=== PATIENT | male | born 1955 | race Caucasian/White ===

== ENCOUNTER 2021-01-31 17:41 | Inpatient (IN) | payer OTHER ==
[~2021-01-31] VITALS: Ht 180.3 cm; Wt 100.7 kg
--- NOTE | ~2021-01-31 | EMS ---
[facility] [address] [place] [address] EMS Patient Care Report Name: JOSE SMITH Room #: 357-P ADM IN M.R.#: [id number] Admission: 01/31/21 Attend Phys: Davey Jones, Discharge: Date of : 51 Report #: [id number] THIS REPORT FOR: //name// Report Transmitted: 02/05/2021 11:03 EMS Care Summary [place], [place]/[facility] Incident [id number] @ 01/31/2021 16:55 Incident Location [address] [place] [address] Patient JOSE SMITH Male, 65 Years 1955 Patient Address [address] [place], [place] [id number] Patient History Other,Hypertension (HTN), Patient Allergies No known allergies, Patient Medications Gabapentin, Chief Complaint CHEST PAIN Disposition Transported No Lights/Clarissa Dispatch Reason Unknown Problem/Person Down Transported To [facility] Narrative M41 DISPATCHED TO AN UNKNOWN PROBLEM. M41 AOS AND FOUND A MALE PT STANDING ON HIS PORCH. PT APPEARED IN DISTRESS THE PT WAS COOL PALE AND DIAPHORETIC. THE PT STATES THAT HE IS HAVING CHEST PAIN [facility] [address] [place] [address] EMS Patient Care Report Name: JOSE SMITH Room #: 357-P ADM IN M.R.#: [id number] Admission: 01/31/21 Attend Phys: Davey Jones, Discharge: Date of : 51 Report #: [id number] AND DIFFICULTY BREATHING. HE STATES THAT HE WOKE UP AND HE HAS HAD THIS PAIN FOR ABOUT TWO HOURS. HE STATES LAST NIGHT HE WAS CHASING A RACCOON OFF HIS PORCH WHEN HE FELL ABOUT 4 FEET ONTO HIS RIGHT SIDE. HE STATES HE DID NOT LOSE CONSCIOUSNESS AND THAT HE REMEMBERS THE ENTIRE EVENT. DENIES BLOOD THINNERS. DENIES HEAD AND NECK PAIN. THE PT STATES THAT HE BELIEVES HIS RIB PAIN MAY BE FROM THIS EVENT. HX, MEDS, ALLERGIES OBTAINED. PT RATES HIS PAIN 8/10 AND APPEARS VERY UNCOMFORTABLE. PT HELPED TO THE COT AND MOVED TO THE AMBULANCE. VITALS OBTAINED. BGA OBTAINED. IV ACCESS ATTEMTPED AND FAILED. 4 AND 12 LEAD OBTAINED. PT GIVEN 324MGA ASA. PT STATES HE WOULD LIKE TO GO TO [facility]. [facility] AND I ADVISED THE PT THAT [facility] IS CLOS[facility] AND OPEN TO [facility]. THE PT ALSO AGREED TO GO THERE ONCE HE FELT HOW UNCOMFORTABLE THE RIDE TO THE HOSPITAL WAS. M[address] [facility]. EN ROUTE PT REMAINED STABLE. REPORT GIVEN TO RITA GARCÍA. SIGNATURES OBTAINED. TRANSFER OF CARE TOOK PLACE. M41 IN SERVICE. [employer] Initial Vitals @17:15P: 90,CO: 2,SpO2: 93,PA Suspected: false @17:20P: 87,SpO2: 81, @17:22P: 82,SpO2: 95, @17:22P: 83, @17:22P: 88,CO: 0,SpO2: 94, @17:19P: 84,BP: 129/92,CO: 3,SpO2: 93, @17:12P: 78,R: 18,BP: 164/97,Pain: 8/10,GCS: 15,Glucose: 140,CO: 0,SpO2: 94,Revised Trauma: 12, @17:32P: 80,R: 18,BP: 136/89,Pain: 8/10,GCS: 15,CO: 1,SpO2: 95,Revised Trauma: 12, Assessments @17:04MENTAL:Event Oriented,Place Oriented,Person Oriented,Time Oriented,SKIN:Diaphoresis,Pale,Cold,HEENT:Head/Face: No Abnormalities,Neck/Airway: No Abnormalities,LUNG SOUNDS:General: No Abnormalities,ABDOMEN:General: No Abnormalities,PELVIS//GI:No Abnormalities,EXTREMITIES:Capillary Refill: Right Upper: < 2 Sec,Left Arm: No Abnormalities,Right Arm: No Abnormalities,Left Leg: No Abnormalities,Right Leg: No Abnormalities,PULSE:Radial: 2+ Normal,NEURO:No Abnormalities, [address] [address] EMS Patient Care Report Name: MARYDUCJOSE Room #: 357-P ADM IN M.R.#: [id number] Admission: 01/31/21 Attend Phys: Davey Jones, Discharge: Date of : 51 Report #: [id number] Impression Chest pain on breathing Procedures @17:04ALS AssessmentResponse: UnchangedSucceeded@17:22Saline Lock 0cc (20 ga) Site: Hand-LeftResponse: UnchangedFailed@17:1512-Lead ECGResponse: UnchangedSucceeded@17:22Aspirin - 324 Milligrams (mg) - OralResponse: Unchanged@17:123-Lead ECGResponse: UnchangedSucceeded@17:14Oxygen FlowRate: 2 Device: Nasal Cannula (NC) Response: UnchangedSucceeded Timeline 16:52,Call Received 16:52,Dispatch Notified 16:55,Dispatched 16:55,En Route 17:03,On Scene 17:04,At Patient 17:04,ALS Assessment,Response: UnchangedSucceeded, 17:12,3-Lead ECG,Response: UnchangedSucceeded, 17:12,BP: 164/97 M,PULSE: 78,RR: 18 R,SPO2: 94 Ox,ETCO2: ,B,PAIN: 8,GCS: 15, 17:14,Oxygen FlowRate: 2 Device: Nasal Cannula (NC) Response: UnchangedSucceeded, 17:15,12-Lead ECG,Response: UnchangedSucceeded, 17:15,BP: / M,PULSE: 90,RR: R,SPO2: 93 Ox,ETCO2: ,BG: ,PAIN: ,GCS: , 17:19,BP: 129/92 M,PULSE: 84,RR: R,SPO2: 93 Ox,ETCO2: ,BG: ,PAIN: ,GCS: , 17:20,BP: / M,PULSE: 87,RR: R,SPO2: 81 Ox,ETCO2: ,BG: ,PAIN: ,GCS: , 17:22,Saline Lock 0cc 20 ga Site: Hand-Left,Response: UnchangedFailed, 17:22,BP: / M,PULSE: 88,RR: R,SPO2: 94 Ox,ETCO2: ,BG: ,PAIN: ,GCS: , 17:22,BP: / M,PULSE: 83,RR: R,SPO2: Ox,ETCO2: ,BG: ,PAIN: ,GCS: , 17:22,Aspirin - 324 Milligrams (mg) - Oral,Response: Unchanged 17:22,BP: / M,PULSE: 82,RR: R,SPO2: 95 Ox,ETCO2: ,BG: ,PAIN: ,GCS: , 17:23,Depart Scene 17:32,BP: 136/89 M,PULSE: 80,RR: 18 R,SPO2: 95 Ox,ETCO2: ,BG: ,PAIN: 8,GCS: 15, 17:37,At Destination 17:52,Call Closed Disclaimer v1.1 Copyright 2020 [employer] This EMS Care Summary contains data elements from the applicable legal record (which may be displayed differently). It is designed to provide pertinent information for the following purposes: continuity of care, clinical quality, and state data reporting. The complete legal record is available to ED staff and administrators of the receiving hospital in [employer]'s Patient Tracker. All data is provided "as is."
[2021-01-31 17:41] VITALS: BP 164/90
[~2021-01-31 17:41] MED LIST: PERCOCET 5-3251 EACH PO
[2021-01-31] MEDS ORDERED: TAMSULOSIN HCL0.4 MG PO (17:46)
[2021-01-31] MEDS ORDERED: NEURONTIN 300M300 M2 PO (17:46)
[2021-01-31] MEDS ORDERED: AMLODIPINE BESY10 MG PO (17:47)
[2021-01-31 19:07] LABS: BASOPHILS 0.4 % (0.0-2.0); EOSINOPHILS 0.1 % (0.0-3.0); HEMATOCRIT 37.8 % (42.0-52.0); HEMOGLOBIN 12.8 gm/dL (14.0-18.0); LYMPHOCYTES 12.4 % (24.0-44.0); MCH 30.2 pg (26.0-34.0); MCHC 33.8 g/dL (28.0-37.0); MCV 89.3 fL (80.0-100.0); PLATELET COUNT 309 thou/uL (150-400); POLYS 79.1 % (36.0-66.0); RBC 4.23 mil/uL (4.50-6.00); RDW 14.4 % (10.5-14.5); WBC 15.2 thou/uL (4.0-11.0)
[2021-01-31 19:16] LABS: CALCIUM 9.1 mg/dL (8.5-10.1); CREATININE 1.4 mg/dL (0.7-1.3)
[2021-01-31 19:25] LABS: APTT 26.2 Seconds (24.5-32.8); INR 1.07; PROTIME 11.6 Seconds (10.5-12.1)
[2021-01-31 19:27] LABS: ALBUMIN 3.5 g/dL (3.4-5.0); POTASSIUM 3.6 mmol/L (3.5-5.1); TOTAL BILIRUBIN 1.8 mg/dL (0.2-1.0)
[2021-02-01] VITALS (10 sets, daily range): BP systolic 134–170; BP diastolic 78–106
--- NOTE | 2021-02-01 06:47 | NUR ---
PT ALERT AND ORIENTED X4. VSS AFEBRILE. ADMITTED FROM ER TO RM 357. RIGHT CT TO -20CM SUCTION DRAINING MOD AMTS SEROSANGINOUS DRAINAGE 300 ML OUT. C/O JESUS RIB PAIN, AND RIGHT CT INSERTION SITE PAIN X2. MEDICATED WITH MORPHINE WITH ADEQUATE RELIEF OBTAINED . HE IS SLEEPING PRESENTLY AFTER MORPHINE GIVEN. HE HAS BEEN SLEEPING MOST OF THE NIGHT. BP ELEVATED THIS AM. MORPHINE GIVEN FOR PAIN. BP CAME DOWN AFTER THE MORPHINE.
--- NOTE | 2021-02-01 08:17 | EKG ---
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
--- NOTE | 2021-02-01 08:49 | NUR ---
Nutrition: Pt admitted with chest trauma following a fall. Multiple rib fractures, right hemothorax S/P chest tube placement. Receved consult, no reason stated. Visited briefly with pt, very sleepy after morphine given. Voiced decreased appetite past day or two since accident. Stable weights, BMI 32, obesity class 1. RD encouraged adequate intake/protein for healing. Pt voiced no food preferences at this time. Can offer supplement if po inadequate. New admit, first meal this morning. Low nutrition risk.
--- NOTE | 2021-02-01 15:11 | NUR ---
INITIAL ASSESSMENT: Received consult for discharge planning. SW reviewed chart and spoke with nursing and attending physician. Pt was admitted from home after a traumatic fall. Pt with multiple rib fx. Pt has chest tube in tact and is on 2L of O2. SW met with pt at bedside. Introduced role of SW. Pt is alert/orientated x 4. Pt reports he lives at home alone. Prior to admission, pt was independent with ADLs. No use of DME. No hx of services or post-acute placement. Pt's PCP is Dr. Amol Mancilla at [facility]. PT/OT to evaluate pt when he is able to participate to assist with recommendations for discharge needs. SW is following to assist as needed with discharge planning.
--- NOTE | 2021-02-01 18:17 | NUR ---
ASSUMED PATIENT CARE AT 0700. A/O 4. RIGHT CHEST TUBE NO LEEKING NOTED. PAIN MEDS GIVEN. SLOWLY TOWARDS POC GOALS.
[2021-02-02 04:00] VITALS: BP 135/81
--- NOTE | 2021-02-02 04:01 | NUR ---
PROGRESS PT PROGRESSING RATING PAIN A 7 TO 9 TAKING HYDROCODONE Q4HRS PRN WITH EFFECT PT SLEEPS AFTER. CHEST TUBE INTACT TO RIGHT FLANK CONNECTED TO ATRIUM AND LIWS, NO BUBBLING OR TIDALING NOTED. DRESSING INTACT AND CHEST TUBE IN PLACE AND SECURE.PAIN CONTROLLED WITH HYDROCODONE Q4HRS PRN. CONTINUE POC.
[2021-02-02 07:23] VITALS: BP 142/84
[2021-02-02 11:21] VITALS: BP 140/88
[2021-02-02 13:45] VITALS: BP 117/71
--- NOTE | 2021-02-02 13:54 | NUR ---
PT IS ALERT AND ORIENTED X4. PT IS CURRENTLY SA ON THE MONITOR. PREVIOUSLY PT WAS SR. DR. TOSCANO CHANGED CHEST TUBE TO WATER SEAL. APPROXIMATELY 30 MINUTES AFTER CHEST TUBE WAS CHANGED TO WATER SEAL AND PT ATE LUNCH, PT STARTED FEELING LIGHTHEADED AND STATES THAT HE DOES NOT FEEL RIGHT. PT BP 117/71, HR 67, AND O2 94% ON 2L NC. PAGED DR. TOSCANO REGARDING CHANGE IN PT CONDITION. PT LAST HAD HYDROCODONE AT 1008 FOR PAIN. PT HAS BEEN TAKING Q4HRS PRN FOR PAIN. WILL WAIT FOR CALL BACK WITH RECOMMENDATIONS.
--- NOTE | 2021-02-02 15:01 | NUR ---
RECEIVED CALL BACK FROM DR. TOSCANO AFTER PT DESCRIBED THAT HE THINKS IT WAS THE FOOD THAT IS MAKING HIM NOT FEEL WELL. PT STATED HE WAS HOT AND NAUSEATED AND BELCHING C[place]AL[place]PE. PT STATED HE DOES NOT WANT ANYTHING FOR NAUSEA AT THIS TIME. PROVIDED INFORMATION TO DR. TOSCANO. DR. TOSCANO DOES NOT WANT TO PUT THE CHEEST TUBE BACK TO SUCTION AT THIS TIME AND WAIT TO SEE IF HIS SYMPTOMS ARE BETTER. pT DID STATE HE WAS FEELING CONSTANTINO BUT ONLY NAUSEAED AND BELCHING NOW. WILL CONTINUE TO MONITOR.
[2021-02-02 15:30] VITALS: BP 121/74
--- NOTE | 2021-02-02 15:43 | NUR ---
SW reviewed chart and spoke with nursing and attending physician. Pt has chest tube in place and is on 3L of O2. No weekend discharge planned. PT/OT are working with pt to assist with recommendations for discharge needs. Pt lives at home alone. Will need insurance auth for post-acute placement. HOMA is following to assist as needed with discharge planning.
[2021-02-02 19:14] VITALS: BP 152/88
[2021-02-03 03:38] VITALS: BP 134/86
[2021-02-03 04:13] LABS: CALCIUM 8.4 mg/dL (8.5-10.1); POTASSIUM 3.6 mmol/L (3.5-5.1)
[2021-02-03 04:31] LABS: HEMATOCRIT 34.5 % (42.0-52.0); HEMOGLOBIN 11.3 gm/dL (14.0-18.0); MCH 29.8 pg (26.0-34.0); MCHC 32.8 g/dL (28.0-37.0); MCV 90.6 fL (80.0-100.0); RBC 3.81 mil/uL (4.50-6.00); RDW 14.4 % (10.5-14.5); WBC 11.3 thou/uL (4.0-11.0)
--- NOTE | 2021-02-03 05:03 | NUR ---
INCREASED OXYGEN TONIGHT TO 3.0 LITERS. PT HAS BEEN TAKING HIS OXYCODONE WITH EFFECTIVE CONTROL OF PAIN. ENCOURAGED HIM TO USE THE INSENT. SPIROMETERY WHEN THE PAIN IN CONTROLLED.
[2021-02-03 07:02] VITALS: BP 131/82
[2021-02-03 11:11] VITALS: BP 107/77
[2021-02-03 15:15] VITALS: BP 113/80
--- NOTE | 2021-02-03 15:48 | NUR ---
PT IS ALERT AND ORIENTED X4. PT IS TOLERATING 3L NC AND HAS BEEN USING INCENTIVE SPIROMETER BUT STILL HAS SHALLOW BREATHING. PRN OXYCODONE GIVEN FOR PAIN AND HELPS PRIOR TO TAKING DEEP BREATHS WITH THE INCENTIVE SPIROMETER. CHEST TUBE IS INTACT AND IS TO WATERSEAL WITH SANGUINEOUS DRAINAGE. NO OTHER COMPLAINTS AT THIS TIME. WILL CONTINUE TO MONITOR.
[2021-02-03 20:12] VITALS: BP 139/83
--- NOTE | 2021-02-04 03:11 | NUR ---
continues on 4.0 liters n/c of oxygen. he has been able to relax and have a snack at bedtime. the oxycodone q 4 hrs helps control his pain level. no discharge concerns voiced.
[2021-02-04 04:10] VITALS: BP 150/89
[2021-02-04 07:38] VITALS: BP 136/79
[2021-02-04 11:25] VITALS: BP 134/88
--- NOTE | 2021-02-04 14:42 | NUR ---
PT IS ALERT AND ORIENTED X4. PT HAS BEEN SINUS ARRHYTHMIA ON THE MONITOR. PT IS CURRENTLY 4L NC. CHEST TUBE WAS REMOVED BY DR. SOTO THIS AM. CLEANED UP AREAS UNDER BANDAGE. LARGE PURPLE AND BLUE BRUISE AND BLEEDING ABRASION FROM PT FALL PRIOR TO ADMIT THAT WAS UNDER DRESSING FOR CHEST TUBE. pLACED ISLAND DRESSING TO ABRASION. PT STATED HE FEELS BETTER SINCE HAVING THE CHEST TUBE OUT AND LESS PAIN. PT HAS RECEIVED PRN OXYCODONE FOR PAIN. PT IS UP WITH WALKER TO BATHROOM STAND BY ASSIST. PT STATED HE IS FEELING CONSTIPATED AND IS CURRENTLY PASSING GAS BUT WOULD LIKE SOMETHING MORE FOR RELIEF. PAGED DR. WREN. WAITING FOR CALL BACK. WILL CONTINUE TO MONITOR.
[2021-02-04 15:35] VITALS: BP 139/80
[2021-02-04 19:21] VITALS: BP 136/80
[2021-02-05 04:13] VITALS: BP 157/85
--- NOTE | 2021-02-05 06:39 | NUR ---
Pt. stated he slept well for seven hours straight and woke up in pain. Morphine IV given for immediate relief of pain which he rated as 10/10. Oxycodone given later on and he's resting better at this time. . Right chest tube dressing site changed this am. O2 at 4L/NC. Denies any other concern.
[2021-02-05 07:40] VITALS: BP 143/87
[2021-02-05 11:08] VITALS: BP 130/88
--- NOTE | 2021-02-05 15:19 | NUR ---
HOMA reviewed chart and spoke with nursing and attending physician. Pt is progressing towards goals for discharge. Chest tube discontinued yesterday. Pt is on 3L of O2. PT/OT is working with pt for recommendations for discharge. SW attempted to meet with pt at bedside. Pt in the restroom. HOMA placed call to pt's room at a later time. No answer. Plan is for pt to discharge home when medically stable. Will need rest/exercise oximetry to determine pt's home O2 needs. HOMA is following to assist as needed with discharge planning.
[2021-02-05 15:59] VITALS: BP 136/92
--- NOTE | 2021-02-05 16:01 | NUR ---
PT IS ALERT AND ORIENTED X4. PT IS ON 3L NC AND TOLERATING THE DECREASE IN OXYGEN WELL. PT HAS BEEN UP TO THE BATHROOM AND WALKED IN THE [place] WITH THERAPT. PT STATED HE IS FEELING BETTER. PT STILL GETTIN PRN OXYCODONE. PT DID RECEIVE A ONE TIME SUPPOSITORY FOR CONSTIPATION. PT HAD BM AND STATES HE DOES FEEL BETTER. NO OTHER COMPLAINTS OF DISCOMFORT AT THIS TIME. WILL CONTINUE TO MONITOR.
[2021-02-05 20:10] VITALS: BP 148/74
[2021-02-06 02:45] VITALS: BP 138/91
[2021-02-06 04:45] LABS: HEMATOCRIT 32.6 % (42.0-52.0); MCH 30.5 pg (26.0-34.0); MCHC 33.7 g/dL (28.0-37.0); MCV 90.6 fL (80.0-100.0); RBC 3.6 mil/uL (4.50-6.00); RDW 14.4 % (10.5-14.5); WBC 10.3 thou/uL (4.0-11.0)
--- NOTE | 2021-02-06 04:53 | NUR ---
Up in the chair till HS watching TV. Requested to be woken up for prn pain med to be given so he won't wake up in a lot of pain. He stated he slept well during the night. Pain well controlled at this time. O2 at 3L/NC. Encouraged use of IS. Dressing intact to right chest tube site. Foam dressing for abrasion on head. Making some progress towards care plan goals.
[2021-02-06 05:18] LABS: CALCIUM 8.8 mg/dL (8.5-10.1); CREATININE 0.8 mg/dL (0.7-1.3)
[2021-02-06 07:15] VITALS: BP 148/79
[2021-02-06] MEDS ORDERED: STIMULANT LAXA1 EACH PO (10:31)
[2021-02-06 11:07] VITALS: BP 131/66
--- NOTE | 2021-02-06 11:28 | NUR ---
DISCHARGE NOTE: HOMA reviewed chart and spoke with nursing and hospitalist. Pt is medically stable for discharge home today. Rest/exercise oximetry ordered to evaluate pt for home O2. HOMA met with pt at bedside to discuss discharge plan. SW discussed discharge needs: home O2 and HH. Pt declines HH, stating he does not feel that he needs HH. Pt is agreeable with home O2 if needed. DME companies provided to pt for home O2. No preference voiced. Pt's home address and phone number verified. Pt states he will have transportation home when discharged. Awaiting rest/exercise oximetry at this time. HOMA is following to finalize discharge plan.
--- NOTE | 2021-02-06 11:36 | NUR ---
OT SPOKE WITH PT. AT 1016 THIS AM, PT. REPORTING FEELING NO FURTHER OT NEEDS AT THIS TIME, FEELS CONFIDENT HE CAN RETURN HOME AT D/C WITHOUT OT. OT EXPLAINS PT. MAY CHANGE HIS MIND AND TO LET RN OR CASE MGMT KNOW IF PT. WANTS OT TO RETURN. AT THIS TIME, OT WILL D/C PT.
[2021-02-06 15:45] VITALS: BP 139/88
--- NOTE | 2021-02-06 16:58 | NUR ---
SPOKE TO DR SOTO THIS AM AT 1030 REGARDING POSSIBLE DISCHARGE. THIS AFTERNOON AT 1340 RT DID O2 SAT EVAL AT REST AND EXERCISE AND REPORTED THAT PT REQUIRED 15 L PLUS WHILE AMBULATING. DR WREN ORDERED STAT CXR AND LASIX IVP. DR SOTO'S ANSWERING SERVICE CALLED AT 1626 TO UPDATE ON RESULTS. WILL CONTINUE TO MONITOR.
[2021-02-06 20:11] VITALS: BP 162/98
[2021-02-06 21:16] VITALS: BP 129/74
--- NOTE | 2021-02-07 02:21 | NUR ---
Pt. very frustrated at shift change. He stated doctor told him he can go home yesterday and he didn't. RT in the room explained to him that with activities he required quite a bit of oxygen to maintain his oxygen level up. Emotional support given, gave him time to calm down then came back later. Offered pain med but he declined stating it's making him constipated and he will not take it again. Scheduled laxative given to pt. and offered to call for other options if that will not work. He verbalized don't even bother and he does not need anything. He stated he will be the one to talk to doctor about it when he sees him tomorrow. O2 at 3L/NC with O2 sat of 93%-94%. Elevated BP due to being upset. Rechecked an hour later after he calm down and BP is better.He slept soundly after that then around 0135 he got up to use the bathroom. Bed alarm was going off when he stood up and he got upset again stating he feels like he's in assisted. Explained to him bed alarm is for safety reasons and if he call for help ahead of time it can be turned off prior. Pt. frowning once he got back to bed. Pt. was asked if he needs his pain med to help him get comfortable but he declined at this time. Dressing on right chest tube site clean,dry and intact.
[2021-02-07 04:37] VITALS: BP 143/83
[2021-02-07 04:45] VITALS: BP 156/83
--- NOTE | 2021-02-07 06:20 | NUR ---
C/O abdominal discomfort due to being bloated and the need to have a bm. He reported passing gas but has not had a bm since the 4th and only had a small bm after suppository given. He stated he does not want enema and he does not want suppository either because it does not work. MANAGER [employer]BI[employer] notified and order received. Mag citrate given to pt. and explained to him MANAGER MOBILE also started him on miralax daily. Pt. got agitated when bed alarm went off after he got up verbalizing " you can't even do anything , turn that thing off for God's sake. I feel like I'm in jail". Bed alarm turned off per pt.'s request. Still denies need for pain med.
[2021-02-07 07:22] VITALS: BP 150/90
[2021-02-07] MEDS ORDERED: LEVOFLOXACIN500 MG PO (09:43)
--- NOTE | 2021-02-07 11:52 | NUR ---
HOMA reviewed chart and spoke [facility] nursing and attending physician. Pt to have repeat rest/exercise oximetry today to determine home O2 needs. Pt currently on 3L. HOMA met with pt and his son at the bedside to discuss discharge plan. Pt states he is not sure if he is going to discharge home today. HOMA explained that RT will be doing another rest/exercise oximetry. HOMA offered to arrange services. Pt declined. Awaiting rest/exercise results. Will need a script for home O2. Pt's son will provide transportation home. HOMA updated [facility] liaison. HOMA is following to assist as needed with discharge planning.
[2021-02-07 12:10] VITALS: BP 149/84
[2021-02-07 16:25] VITALS: BP 127/81
--- NOTE | 2021-02-07 17:54 | NUR ---
UPDATE TO DC: PT REFUSING TO WORK WITH RT FOR EXERCISE OXIMETRY X MULTIPLE ATTEMPTS THIS SHIFT. PT STATES "A FEW HOURS AGO I MAY HAVE BEEN READY, BUT THAT WOULD HAVE BEEN A GRAVE MISTAKE. I DO NOT FEEL READY TO GO HOME TODAY" RT, CM, AND PHYSICIAN INFORMED.
[2021-02-07 19:08] VITALS: BP 122/85
--- NOTE | 2021-02-07 23:18 | NUR ---
PT ALERT AND ORIENTED X4. VSS T 98.9. 96% ON 2LNC. SR WITH PACS ON THE MONITOR. C/O BACK PAIN. MEDICATED WITH 1 OXYCODONE. PT SLEEPING PRESENTLY WITH NO C/O. RIGHT CT DRESSING CHANGED AND RIGHT LATERAL BACK DRESSING CHANGED. CLEANED WITH NS AND GAUZE AND 4X4 AND ABDS APPLIED. SUTURES ARE INTACT TO OLD CT SITE. NO S/S DISTRESS.
[2021-02-08 03:34] VITALS: BP 139/85
[2021-02-08 03:39] VITALS: BP 156/78
--- NOTE | 2021-02-08 04:49 | NUR ---
PT PROGRESSING TOWARDS D/C GOALS. VSS AFEBRILE. C/O PAIN ALONG RIGHT CHEST TUBE OLD INSERTION SITE. MEDICATED WITH OXYCODONE. PTIS SLEEPIG QUIETLY. NO S/S DISTRESS, UNLABORED ON 2LNC.
[2021-02-08 07:09] VITALS: BP 114/70
[2021-02-08] MEDS ORDERED: NORCO5 PO ×2 (09:48→09:49)
[2021-02-08 11:10] VITALS: BP 128/83
--- NOTE | 2021-02-08 11:35 | NUR ---
Nutrition follow up: Pt noted with 8-10# weight loss per documentation since admit. he reports UBW 230#, but expressed delight with notice of weight loss. He is not concerned with his weight loss nor hi appetite. he reorts his appetite is "normal" and intakes are good. Noted he did receive some lasix / which could contribute to the weight loss. he reports not need for supplements at this time. BMI 31 (obese I). Remains low nutrition risk.
[2021-02-08 12:46] VITALS: BP 128/83
--- NOTE | 2021-02-08 13:37 | NUR ---
DISCHARGE NOTE: SW reviewed chart and spoke with nursing and hospitalist. Pt is medically stable for discharge home today. Pt refused to discharge yesterday and have RT complete a rest/exercise oximetry. Rest/exercise oximetry completed this morning. Pt does not need home O2. Pt declines having HH services arranged. Pt's family to provide transportation home. HOMA updated attending physician. HOMA also updated [facility] liaison, who will come to pick up truck driver portable O2 tank. No additional SW needs identified at this time, but is available to assist should needs arise.
== END 2021-02-08 14:34 | disposition home or self-care (01) | DRG 551 ==
LOC: ER 17:41 → 3W 22:15 → EROBS 22:15 → 3W 02-01 00:22
PROVIDERS: Hospitalist; Physician Assistant; Surgery; ADMIT Surgery; ATTEND Surgery
PROC: 0W9930Z Drainage of Right Pleural Cavity with Drainage Device, Percutaneous Approach (ICD-10-PCS; principal; 2021-02-01)
DX: S32.048A Other fracture of fourth lumbar vertebra, initial encounter for closed fracture (principal); J96.01 Acute respiratory failure with hypoxia; S22.43XA Multiple fractures of ribs, bilateral, initial encounter for closed fracture; S22.008A Other fracture of unspecified thoracic vertebra, initial encounter for closed fracture; J94.2 Hemothorax; N17.9 Acute kidney failure, unspecified; J93.9 Pneumothorax, unspecified; S32.039A Unspecified fracture of third lumbar vertebra, initial encounter for closed fracture; N40.0 Benign prostatic hyperplasia without lower urinary tract symptoms; G62.9 Polyneuropathy, unspecified; E66.9 Obesity, unspecified; I10 Essential (primary) hypertension; M51.36 Other intervertebral disc degeneration, lumbar region; Z20.822 Contact with and (suspected) exposure to COVID-19; W01.0XXA Fall on same level from slipping, tripping and stumbling without subsequent striking against object, initial encounter; Z68.31 Body mass index [BMI] 31.0-31.9, adult; Z90.49 Acquired absence of other specified parts of digestive tract; Y93.89 Activity, other specified; Y92.89 Other specified places as the place of occurrence of the external cause; Y99.8 Other external cause status
CPT/HCPCS: 10879